=== PATIENT | female | born 1990 ===

== ENCOUNTER 2018-03-21 13:33 | Inpatient (IN) | payer MEDICAID, OTHER ==
[2018-03-21 13:45] VITALS: BMI 37.2
[2018-03-21 14:12] LABS: BASO # 0.01 K/mm3 (0.0-2.0); BASO % 0.1 % (0.0-3.0); EOS # 0.2 (0.0-0.7); EOS % 2.2 % (1.5-5.0); GRAN # 5.74 (1.4-6.5); GRAN % 69.6 % (50.0-68.0); HEMOGLOBIN 12.9 g/dL (12.0-16.0); LYMPH # 1.9 (1.2-3.4); LYMPH % 23.2 % (22.0-35.0); MEAN CELL VOLUME 77.2 fl (80.0-105.0); MEAN CORPUSCULAR HGB CONC 33.7 g/dl (31.0-37.0); MONO # 0.4 (0.1-0.6); MONO % 4.9 % (1.0-6.0); RBC 4.96 10^6/uL (3.5-6.1); RED CELL DISTRIBUTION WIDTH 14.4 % (11.5-14.5); WHITE BLOOD COUNT 8.2 10^3/ul (4.5-11.0)
[2018-03-21 14:13] LABS: URINE BILIRUBIN NEGATIVE (NEGATIVE); URINE BLOOD TRACE-INTACT (NEGATIVE); URINE GLUCOSE (UA) NEGATIVE (NEGATIVE); URINE LEUKOCYTE ESTERASE NEGATIVE Leu/uL (NEGATIVE); URINE PROTEIN NEGATIVE mg/dL (<30 mg/dL); URINE UROBILINOGEN 0.2 E.U./dL (<1 E.U./dL)
[2018-03-21 14:14] LABS: URINE APPEARANCE CLEAR (CLEAR); URINE COLOR YELLOW (YELLOW)
[2018-03-21 14:23] LABS: ALB/GLOB RATIO 1.1 (1.1-1.8); ALBUMIN 4.2 g/dL (3.0-4.8); ALT/SGPT 15 U/L (7-56); AST/SGOT 20 U/L (14-36); BLOOD UREA NITROGEN 8 mg/dL (7-21); CALCIUM 9.3 mg/dL (8.4-10.5); GFR NON-AFRICAN AMERICAN > 60; URINE BACTERIA MANY (NEG); URINE WBC 0 - 2 /hpf (0-6)
[2018-03-21 14:26] LABS: ACETAMINOPHEN < 10.0 ug/ml (10.0-20.0); SALICYLATE < 1 mg/dL (2.0-20.0)
[2018-03-21 14:34] LABS: BARBITURATES, UR NEGATIVE (NEGATIVE); BENZODIAZEPINES, UR NEGATIVE (NEGATIVE); OPIATES, UR NEGATIVE (NEGATIVE); PHENCYCLIDINE, UR NEGATIVE (NEGATIVE)
--- NOTE | 2018-03-21 15:10 | CARD ---
APPROVED REPORT Date of service: 03/21/2018 EKG Measurement Heart [id number] [id number] <Conclusion> Normal sinus rhythm Minimal voltage criteria for LVH, may be normal variant Cannot rule out Anterior infarct, age undetermined Abnormal ECG
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
--- NOTE | 2018-03-21 15:57 | RAD ---
HISTORY: pes eval COMPARISON: Chest x-ray performed 07/09/14 TECHNIQUE: Chest, one view. FINDINGS: LUNGS: No focal consolidation. Please note that chest x-ray has limited sensitivity for the detection of pulmonary masses. PLEURA: No significant pleural effusion identified. No definite pneumothorax . CARDIOVASCULAR: The cardiomediastinal silhouette appears within normal limits of size. OSSEOUS STRUCTURES: No acute osseous abnormality identified. VISUALIZED UPPER ABDOMEN: Unremarkable. OTHER FINDINGS: None. IMPRESSION: No focal consolidation, significant pleural effusion, or definite pneumothorax identified.
[2018-03-21] MEDS ORDERED: Alum-Mag Hydrox-Simethicone Susp (30 mL) PO PRN (22:07)
[2018-03-21] MEDS ORDERED: Magnesium Hydroxide Susp 30 ml UD PO PRN (22:07)
[2018-03-21 23:09] VITALS: O2SAT 100
--- NOTE | 2018-03-22 07:26 | PCM.BM ---
<Josias Degroot O - Last Filed: 03/22/18 07:23> Treatment Plan Problems - Problems identified on initial assessmt Hopelessness Date Initiated: 03/21/18 Time Initiated: 21:40 Assessment reference: NA Status: Active Non-compliant with medication Date Initiated: 03/21/18 Time Initiated: 22:45 Assessment reference: NA Status: Active Treatment assets and liabiliti Patient Assests: ADL independent, physically healthy Patient Liabilities: financial problems, poor support system, legal issue - Milieu Protocol Maintain good personal hygiene: daily Encourage regular showers, daily Remind patient to perform daily oral care, daily Assist patient to perform ADL's Maintain personal safety: daily Educate patient to report safety concerns to staff, daily Monitor environment for contraband/sharps Medication safety: Monitor for expected outcome, potential side effects: daily, Assess barriers to learning: daily, Assess readiness for medication education: daily Family Contact Family involvement: Patient does not wish Family/SO involvement Family contact: Patient declines to allow family contact at present - Goals for Treatment Patient goals for treatment: I need to be stabilized on my medications Discharge/Continuing Care - Education Needs Education Needs: Patient Medication, Patient Coping Skills - Discharge Discharge Criteria: Free of Suicidal thoughts, Normal sleep pattern <Sera Bryant A - Last Filed: 03/23/18 11:58> - Diagnosis (1) Bipolar II disorder Status: Acute Interventions: 03/23/18 11:58 Psychoeducation Psychopharmacology/adjustment of medications as needed/ monitoring possible side effects Monitor blood level of mood stabilizers Evaluate pt on daily basis Compliance with medications and follow up appointments Suicide and homicide risk assessment and prevention, coping strategies, safety plan Relapse prevention Reduction of symptoms Improve functional status Family involvement As outpatient: cognitive behavioral therapy (2) PTSD (post-traumatic stress disorder) Status: Acute Interventions: 03/23/18 11:59 Psychoeducation Psychopharmacology/adjustment of medications as needed/ monitoring possible side effects Evaluate pt on daily basis Discussion of importance of being compliant with medications and follow up appointments Suicide and homicide risk assessment and prevention, coping strategies, safety plan Reduction of symptoms Relaxation techniques and breathing exercises Improve functional status Family involvement Cognitive behavioral therapy as outpatient <Sherrie Cannon Y - Last Filed: 03/24/18 16:19> Family Contact - Outside Agency [facility] Care involvment: Following patient during stay, Information-sharing Agency contact name: [facility] Agency contact number: [phone]
[2018-03-22 08:38] LABS: BLOOD UREA NITROGEN 8 mg/dL (7-21); GFR NON-AFRICAN AMERICAN > 60; HDL CHOLESTEROL 25 mg/dL (29-60)
[2018-03-22 08:49] LABS: LDL CHOLESTEROL 125 mg/dL (0-129)
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
--- NOTE | 2018-03-22 12:02 | CP.PCM.CON ---
Addendum entered and electronically signed by Raman Tuttle DO 03/22/18 12:25: Past Medical History: UTI, bipolar disorder, history of abuse of painkillers/ benzodiazepines, PTSD Past Surgical History: C- section x 2, cholecystecomy Allergies: PCN- hives Family History: mother- htn Social History: denies ETOH use, admits to 1/2 ppd for 8 years, denies illicit drug use Home Medications: please see MAR Primary care physician: Dr. Rob Original Note: <Raman Tuttle - Last Filed: 03/22/18 12:03> History of Present Illness - History of Present Illness History of Present Illness: Raman Tuttle Internal Medicine Resident- Consult Note On Behalf of Hospitalist Team CC: Medical Evaluation HPI: Patient is a 27 year old female with a past medical history of UTI, bipolar disorder, history of abuse of painkillers/ benzodiazepines, PTSD who was admitted to the psych unit for evaluation and treatment of suicidal ideation. Internal medicine team consulted for medical evaluation. States irritability has improved and suicidal ideation has stopped. Patient offers no new complaints at this time. Denies auditory/visual hallucination and suicidal/homicidal ideation. Further denies fever, chills, chest pain, shortness of breath, abdominal pain, nausea, vomiting, diarrhea, constipation, and urinary symptoms. 12-point review of systems negative except as indicated in the HPI Physical Examination: - Constitutional Appears: Non-toxic, No Acute Distress - Head Exam Head Exam: ATRAUMATIC, NORMOCEPHALIC - Eye Exam Eye Exam: EOMI - ENT Exam ENT Exam: Mucous Membranes Moist - Neck Exam Neck exam: Positive for: Normal Inspection - Respiratory Exam Respiratory Exam: clear to auscultation bilaterally, no wheezing, no rales, no rhonchi - Cardiovascular Exam Cardiovascular Exam: RRR, +S1, +S2 - GI/Abdominal Exam GI & Abdominal Exam: Normal Bowel Sounds, Soft. absent: Distended, Tenderness - Extremities Exam Extremities exam: Positive for: normal inspection. Negative for: calf tenderness - Neurological Exam Neurological exam: Alert, Normal Gait, Oriented x3 - Psychiatric Exam Psychiatric exam: Normal Affect, Normal Mood - Skin Skin Exam: Dry, Intact Assessment and Plan: Patient is a 27 year old female with a past medical history of UTI, bipolar disorder, history of abuse of painkillers/ benzodiazepines, PTSD who was admitted to the psych unit for evaluation and treatment of suicidal ideation. Internal medicine team consulted for medical evaluation. UTI - asymptomatic- no need for abx Hx of Bipolar, history of abuse of painkillers/ benzodiazepines, PTSD - as per psych Prophylaxis: - DVT ppx- not needed as patient is ambulating without overt difficulty - GI ppx- not indicated Internal medicine team will sign off at this time. Please reconsult if needed. Thank you for the opportunity to participate in the care of this patient. Patient seen, case discussed with, and plan approved by attending physician, Dr. Paulson. Past Patient History - Infectious Disease Hx of Infectious Diseases: None - Tetanus Immunizations Tetanus Immunization: Up to Date - Past Social History Smoking Status: Light Smoker < 10 Cigarettes Daily - CARDIAC Hx Cardiac Disorders: No - PULMONARY Hx Tuberculosis: No - NEUROLOGICAL HX Cerebrovascular Accident: No - HEMATOLOGICAL/ONCOLOGICAL Hx Cancer: No - GENITOURINARY/GYNECOLOGICAL Hx Sexually Transmitted Disorders: No - PSYCHIATRIC Hx Substance Use: No - SURGICAL HISTORY Hx Section: Yes Hx Cholecystectomy: Yes - ANESTHESIA Hx Anesthesia: Yes Hx Anesthesia Reactions: No Hx Malignant Hyperthermia: No Meds Allergies/Adverse Reactions: Allergies Allergy/AdvReac Type Severity Reaction Status Date / Time Penicillins Allergy RASH Verified 03/22/18 02:46 - Medications Medications: Current Medications Acetaminophen (Tylenol 325mg Tab) 650 mg PO Q6H PRN PRN Reason: Pain, Mild (1-3) Al Hydrox/Mg Hydrox/Simethicone (Maalox Plus 30 Ml) 30 ml PO DAILY PRN PRN Reason: Dyspepsia Aripiprazole (Abilify) 5 mg PO HS DAVID Fluoxetine HCl (Prozac) 20 mg PO DAILY DAVID Last Admin: 03/22/18 09:57 Dose: 20 mg Lorazepam (Ativan) 2 mg PO Q6 PRN; Protocol PRN Reason: Anxiety Last Admin: 03/21/18 22:21 Dose: 2 mg Magnesium Hydroxide (Milk Of Magnesia) 30 ml PO DAILY PRN PRN Reason: Constipation Trazodone HCl (Desyrel) 50 mg PO HS PRN PRN Reason: Insomnia Zaleplon (Sonata) 5 mg PO HS PRN PRN Reason: Insomnia Last Admin: 03/21/18 22:21 Dose: 5 mg Ziprasidone (Geodon Cap) 20 mg PO Q6 PRN; Protocol PRN Reason: Agitation Last Admin: 03/21/18 22:21 Dose: 20 mg Results - Vital Signs Recent Vital Signs: Last Vital Signs Temp 97.4 F L 03/22/18 07:35 Pulse 70 03/22/18 07:35 Resp 18 03/22/18 03:05 BP 110/76 03/22/18 07:35 Pulse Ox 100 03/21/18 20:00 - Labs Result Diagrams: 03/21/18 13:56 03/22/18 08:00 Labs: Laboratory Results - last 24 hr 03/21/18 03/21/18 03/21/18 13:56 13:56 13:56 WBC 8.2 D RBC 4.96 Hgb 12.9 Hct 38.3 MCV 77.2 L MCH 26.0 MCHC 33.7 RDW 14.4 Plt Count 334 MPV 11.0 Gran % 69.6 H Lymph % (Auto) 23.2 [place] % (Auto) 4.9 Eos % (Auto) 2.2 Baso % (Auto) 0.1 Gran # 5.74 Lymph # (Auto) 1.9 [place] # (Auto) 0.4 Eos # (Auto) 0.2 Baso # (Auto) 0.01 Sodium 142 Potassium 3.6 Chloride 106 Carbon Dioxide 26 Anion Gap 13 BUN 8 Creatinine 0.9 Est GFR ( Amer) > 60 Est GFR (Non-Af Amer) > 60 Random Glucose 107 Calcium 9.3 Total Bilirubin 0.4 AST 20 ALT 15 Alkaline Phosphatase 92 Total Protein 7.9 Albumin 4.2 Globulin 3.8 Albumin/Globulin Ratio 1.1 Triglycerides Cholesterol LDL Cholesterol Direct HDL Cholesterol Urine Color Yellow Urine Appearance Clear Urine pH 6.0 Ur Specific [place] 1.020 Urine Protein Negative Urine Glucose (UA) Negative Urine Ketones Negative Urine Blood Trace-intact H Urine Nitrate Negative Urine Bilirubin Negative Urine Urobilinogen 0.2 Ur Leukocyte Esterase Negative Urine RBC 2 - 5 Urine WBC 0 - 2 Ur Epithelial Cells 6 - 8 Urine Bacteria Many Urine Other Uyeast Salicylates Urine Opiates Screen Urine Methadone Screen Acetaminophen Ur Barbiturates Screen Ur Phencyclidine Scrn Ur Amphetamines Screen U Benzodiazepines Scrn U Oth Cocaine Metabols U Cannabinoids Screen Alcohol, Quantitative 03/21/18 03/21/18 03/21/18 13:56 13:56 13:56 WBC RBC Hgb Hct MCV MCH MCHC RDW Plt Count MPV Gran % Lymph % (Auto) [place] % (Auto) Eos % (Auto) Baso % (Auto) Gran # Lymph # (Auto) [place] # (Auto) Eos # (Auto) Baso # (Auto) Sodium Potassium Chloride Carbon Dioxide Anion Gap BUN Creatinine Est GFR ( Amer) Est GFR (Non-Af Amer) Random Glucose Calcium Total Bilirubin AST ALT Alkaline Phosphatase Total Protein Albumin Globulin Albumin/Globulin Ratio Triglycerides Cholesterol LDL Cholesterol Direct HDL Cholesterol Urine Color Urine Appearance Urine pH Ur Specific [place] Urine Protein Urine Glucose (UA) Urine Ketones Urine Blood Urine Nitrate Urine Bilirubin Urine Urobilinogen Ur Leukocyte Esterase Urine RBC Urine WBC Ur Epithelial Cells Urine Bacteria Urine Other Salicylates < 1 L Urine Opiates Screen Negative Urine Methadone Screen Negative Acetaminophen < 10.0 L Ur Barbiturates Screen Negative Ur Phencyclidine Scrn Negative Ur Amphetamines Screen Negative U Benzodiazepines Scrn Negative U Oth Cocaine Metabols Negative U Cannabinoids Screen Negative Alcohol, Quantitative < 10 03/22/18 08:00 WBC RBC Hgb Hct MCV MCH MCHC RDW Plt Count MPV Gran % Lymph % (Auto) [place] % (Auto) Eos % (Auto) Baso % (Auto) Gran # Lymph # (Auto) [place] # (Auto) Eos # (Auto) Baso # (Auto) Sodium 141 Potassium 4.1 Chloride 107 Carbon Dioxide 27 Anion Gap 11 BUN 8 Creatinine 0.9 Est GFR ( Amer) > 60 Est GFR (Non-Af Amer) > 60 Random Glucose 106 Calcium 9.0 Total Bilirubin AST ALT Alkaline Phosphatase Total Protein Albumin Globulin Albumin/Globulin Ratio Triglycerides 197 H Cholesterol 195 LDL Cholesterol Direct 125 HDL Cholesterol 25 L Urine Color Urine Appearance Urine pH Ur Specific [place] Urine Protein Urine Glucose (UA) Urine Ketones Urine Blood Urine Nitrate Urine Bilirubin Urine Urobilinogen Ur Leukocyte Esterase Urine RBC Urine WBC Ur Epithelial Cells Urine Bacteria Urine Other Salicylates Urine Opiates Screen Urine Methadone Screen Acetaminophen Ur Barbiturates Screen Ur Phencyclidine Scrn Ur Amphetamines Screen U Benzodiazepines Scrn U Oth Cocaine Metabols U Cannabinoids Screen Alcohol, Quantitative <Claudia Paulson - Last Filed: 03/22/18 15:06> Meds - Medications Medications: Current Medications Acetaminophen (Tylenol 325mg Tab) 650 mg PO Q6H PRN PRN Reason: Pain, Mild (1-3) Al Hydrox/Mg Hydrox/Simethicone (Maalox Plus 30 Ml) 30 ml PO DAILY PRN PRN Reason: Dyspepsia Aripiprazole (Abilify) 5 mg PO HS DAVID Fluoxetine HCl (Prozac) 20 mg PO DAILY [facility] Last Admin: 03/22/18 09:57 Dose: 20 mg Lorazepam (Ativan) 2 mg PO Q6 PRN; Protocol PRN Reason: Anxiety Last Admin: 03/21/18 22:21 Dose: 2 mg Magnesium Hydroxide (Milk Of Magnesia) 30 ml PO DAILY PRN PRN Reason: Constipation Nicotine (Nicoderm Cq) 1 patch TD DAILY DAVID Last Admin: 03/22/18 14:43 Dose: 1 patch Trazodone HCl (Desyrel) 50 mg PO HS PRN PRN Reason: Insomnia Zaleplon (Sonata) 5 mg PO HS PRN PRN Reason: Insomnia Last Admin: 03/21/18 22:21 Dose: 5 mg Ziprasidone (Geodon Cap) 20 mg PO Q6 PRN; Protocol PRN Reason: Agitation Last Admin: 03/21/18 22:21 Dose: 20 mg Results - Vital Signs Recent Vital Signs: Last Vital Signs Temp 97.4 F L 03/22/18 07:35 Pulse 70 03/22/18 07:35 Resp 18 03/22/18 03:05 BP 110/76 03/22/18 07:35 Pulse Ox 100 03/21/18 20:00 - Labs Result Diagrams: 03/21/18 13:56 03/22/18 08:00 Labs: Laboratory Results - last 24 hr 03/22/18 08:00 Sodium 141 Potassium 4.1 Chloride 107 Carbon Dioxide 27 Anion Gap 11 BUN 8 Creatinine 0.9 Est GFR ( Amer) > 60 Est GFR (Non-Af Amer) > 60 Random Glucose 106 Calcium 9.0 Triglycerides 197 H Cholesterol 195 LDL Cholesterol Direct 125 HDL Cholesterol 25 L Attending/Attestation - Attestation I have personally seen and examined this patient.: Yes I have fully participated in the care of the patient.: Yes I have reviewed all pertinent clinical information: Yes Notes (Text): 03/22/18 15:02 27 year old female with past medical history of bipolar who presented for evaluation of depressed mood and suicidal ideation. Medical consultation was requested for medical evaluation. Continue with management as per psychiatrist. She is currently on abilify and prozac. UA is negative for LE or nitrates, positive for bacteria/yeast. Patient received diflucan from ER. She is asymptomatic; no further treatment needed. Labs and chart was reviewed. Thank you Dr. Bryant for allowing us to participate in the care of this p atient. Please re-consult as needed. Claudia Paulson MD Hospitalist.
[2018-03-23 07:08] VITALS: RESP 20
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
[2018-03-25 07:36] VITALS: BP 113/66; PULSE 75; TEMP 98.4
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
== END 2018-03-25 13:08 | disposition home or self-care (01) | DRG 430 ==
LOC: ED 13:33 → ERH 15:43 → PSYC 20:43
PROVIDERS: ADMIT Psychiatry & Neurology Psychiatry; ATTEND Psychiatry & Neurology Psychiatry
DX: F31.30 Bipolar disorder, current episode depressed, mild or moderate severity, unspecified (principal); F43.10 Post-traumatic stress disorder, unspecified; R45.851 Suicidal ideations; Z87.440 Personal history of urinary (tract) infections; Z87.891 Personal history of nicotine dependence